=== PATIENT | female | born 2005 | race African-American/Black ===

== ENCOUNTER 2024-12-20 18:23 | Emergency (ER) | payer SELFPAY ==
[2024-12-20 18:23] VITALS: BP 94/64; PULSE 102; RESP 16; TEMP 37.3; O2SAT 99; BMI 27.6
--- NOTE | 2024-12-20 21:36 | ED.RN ---
Chaperoned Dr Rogers doing exam for vaginal abscess
[2024-12-20] MEDS: Lidocaine 2% /Epi 1:100 (50ml) 50 ML Vial 20 ML INFILT (21:53)
--- NOTE | 2024-12-20 22:08 | EDS_ITS ---
HPI History of Present Illness Chief Complaint: Abscess Narrative Narrative: Patient is a 19-year-old female presenting to the emergency department for an abscess. Patient states that a few days ago she noticed swelling to her left inner thigh. She reports she has never had any abscess like this before. Denies any immunocompromise status. Denies any history of diabetes or IV drug use. States that she went to urgent care and they recommended that she come here for possible I&D. Denies any systemic infection symptoms including fever, chills, nausea, vomiting, fatigue PFSH PFSH Medical History no medical history Home Medications ?Medication ?Instructions ?Recorded ?Last Taken ?Type doxycycline hyclate 100 mg capsule 100 mg PO BID 7 day s #14 caps 12/20/24 Unknown Rx doxycycline hyclate 100 mg capsule 100 mg PO BID 7 day s #14 caps 12/20/24 Unknown Rx Allergy/AdvReac Type Severity Reaction Status Date / Time No Known Allergies Allergy Verified 12/20/24 18:24 Family History no significant family his Surgical History no surgical history Social History Smoking Status: Never smoker ROS ROS ED ROS Narrative See HPI EXAM Physical Exam Narrative Exam Narrative: Vital signs: Reviewed General: Alert and oriented x 3. No acute distress HEENT: Head is normocephalic and atraumatic, sinuses nontender, pupils equal round and reactive. Nares are patent. Oropharynx and throat exams normal. Neck: Supple without lymphadenopathy nontender Cardiovascular: Regular rate and rhythm, no murmurs. No rubs or gallops. Normal S1 and S2 Respiratory: Clear to auscultation bilaterally. No wheezes, rales, rhonchi Abdominal: Soft and nontender. Normal bowel sounds. No guarding or rebound. Nonsurgical abdomen : 4 cm fluctuant and tender area to the left medial upper thigh along the inguinal fold. There is surrounding induration. There is no crepitus. There is no active drainage. There is no tracking of the erythema up or down the leg. There is no involvement of the labia or perineum. Extremities: No tenderness. No bruising. Normal range of motion. Normal sensation. The rest of the physical exam is unremarkable Const Vital Signs: 12/20/24 18:23 12/20/24 22:17 12/20/24 22:21 Temperature 99.1 F 98.2 F Temperature Source Oral Pulse Rate 102 H 91 91 Respiratory Rate 16 16 Blood Pressure 94/64 125/106 H 125/106 H Blood Pressure Mean 74 112 112 Pulse Ox 99 93 93 Oxygen Delivery Method Room Air Room Air 12/20/24 22:24 Temperature 98.2 F Temperature Source Oral Pulse Rate Respiratory Rate Blood Pressure Blood Pressure Mean Pulse Ox Oxygen Delivery Method MDM MDM MDM Narrative Medical decision making narrative: Patient is a 19-year-old female presenting to the emergency department for an abscess. Patient was seen and examined. Vitals are stable. Patient resting bed comfortably no acute distress. Patient has no significant risk factors for MRSA. No high risk features including immunocompromise status, diabetes, IV drug use. Differential includes but is not limited to: Cellulitis, abscess, Does not extend into the perineum or labia. Is not consistent with a Bartholin cyst or labial abscess. No crepitus to be concerned about necrotizing fascitis. Informed consent was obtained for an I&D. [id number] bedside ultrasound with evidence of a hypoechoic pocket of fluid consistent with suspicion for abscess. 2% lidocaine with epi was injected for anesthetic. 11 blade was used to make a stab incision with a moderate amount of purulent drainage. Patient tolerated the procedure well. Packing was placed in the wound. Patient was started on doxycycline and given first dose here due to the surrounding induration. Patient was instructed to hold the packing out over the next 24 to 48 hours. Instructed to watch for signs of worsening infection including worsening drainage, warmth, tracking of the redness up or down her leg, fevers, chills, nausea or vomiting. Patient discharged from the Emergency Department. I do not feel that the patient's evaluation reveals any acute reason for admission at this time. I instructed them to either follow-up with their primary care physician or promptly return to the Emergency Department for reevaluation should symptoms worsen or new symptoms develop. I explained what symptoms would indicate the need to return to the emergency department. Shared decision making was used. The patient voiced understanding of the treatment plan and is agreeable with it. Clinical impression Abscess History & Record Review Discussion w/independent historian: Patient Discharge Plan Triage Chief Complaint: Abscess ED Provider: Antonia Rogers Dx/Rx/DC Orders Clinical Impression: Abscess Instructions: ED Abscess Incision And Drainage Prescriptions: New doxycycline hyclate 100 mg capsule 100 mg PO BID 7 Days Qty: 14 0RF doxycycline hyclate 100 mg capsule 100 mg PO BID 7 Days Qty: 14 0RF Primary Care Provider: [facility] Doctor,Out of Referrals: Praveen Kulkarni MD [Med Staff - Active Staff, Family Practice] - As soon as possible Activity Restrictions/Additional Instructions: Take the antibiotic as prescribed. Watch for worsening signs of infection including worsening redness, drainage, warmth, fevers, chills, feeling unwell. Your evaluation in the Emergency Department did not reveal any acute reason for admission. However, I want to emphasize that you may be early in the course of a disease process or illness even if it is not present. For this reason you should follow-up within 24 hours for reevaluation with either your primary care physician or if necessary back here in the Emergency Department. You should return to the Emergency Department immediately if your symptoms worsen or new symptoms develop. Print Language: [place]at[place] Disposition Disposition: Home, Self Care Discharge Date/Time: 12/20/24 22:31
[2024-12-20 22:17] VITALS: BP 125/106; PULSE 91; O2SAT 93
[2024-12-20 22:21] VITALS: BP 125/106; PULSE 91; RESP 16; TEMP 36.8; O2SAT 93
[2024-12-20 22:24] VITALS: TEMP 36.8
== END 2024-12-20 22:31 | disposition home or self-care (01) ==
PROVIDERS: Emergency Provider Student in an Organized Health Care Education/Training Program; Visit Provider Student in an Organized Health Care Education/Training Program
DX: L02.416 Cutaneous abscess of left lower limb (principal)
CPT/HCPCS: 10061; 99282